=== PATIENT | female | born 1985 | race Caucasian/White ===

== ENCOUNTER 2017-12-31 22:24 | Emergency (ER) | payer SELFPAY ==
[~2017-12-31] VITALS: Ht 170.2 cm; Wt 63.5 kg
[2017-12-31 22:38] VITALS: BP_SYST 128
--- NOTE | 2018-01-01 | NUR ---
Patient to ER bed 6 to gown for evaluation. Side rails up. Report given to RODNEY Pittman.
--- NOTE | 2018-01-01 00:10 | NUR ---
ER at bedside examining patient.
--- NOTE | 2018-01-01 00:11 | NUR ---
Pt came into the ER in stable condition. Pt c/o poss spider bite to right lower leg that she noticed this evening while in the shower. Pt present with redness and swelling to right calf. Pt denies pain. -sob -chest pain. No acute distress noted at this time, will continue to monitor.
--- NOTE | 2018-01-01 00:25 | NUR ---
Assisted Dr. Soto with I&D of right lower leg. Pt tolerated procedure well.
[2018-01-01] MEDS ORDERED: BACITRACIN 1 GM OINT TP ONE (00:36)
[2018-01-01] MEDS ORDERED: ceFAZolin SODIUM 1 GM VIAL IM ONE (00:45)
[2018-01-01 01:15] VITALS: BP_SYST 124
--- NOTE | 2018-01-01 01:15 | NUR ---
Patient given written and verbal discharge instructions and verbalizes understanding. JOSEPHINE SHANKS discussed with patient the results and treatment provided. Patient in stable condition. ID arm band removed. Rx of KEFLEX given. Patient educated on pain management and to follow up with PMD. Pain Scale 2/10. Opportunity for questions provided and answered. Medication side effect fact sheet provided.
== END 2018-01-01 01:15 | disposition home or self-care (01) ==
LOC: SED 22:24
DX: L02.415 Cutaneous abscess of right lower limb (principal); R03.0 Elevated blood-pressure reading, without diagnosis of hypertension
CPT/HCPCS: 10060; 96372; 99283; J0690